=== PATIENT | female | born 1965 | race Caucasian/White ===

== ENCOUNTER 2021-10-11 23:53 | Emergency (ER) | payer OTHER, MEDICAID ==
[~2021-10-11] VITALS: Ht 170.2 cm; Wt 78.5 kg
[2021-10-11 23:59] VITALS: BP 143/94
--- NOTE | 2021-10-12 00:02 | NUR ---
AMBUALTORY TO LOBBY
--- NOTE | 2021-10-12 02:10 | NUR ---
SEEN AND EXAMINED BY TABITHA
--- NOTE | 2021-10-12 02:38 | NUR ---
PATIENT REFUSED X RAY , NOTED BY ERMNeymar
[2021-10-12 02:48] LABS: BASOPHILS # (AUTO) 0.2 K/uL (0.00-0.22); BASOPHILS % (AUTO) 2.9 % (0.0-2.0); EOSINOPHILS # (AUTO) 0.1 K/uL (0-0.4); EOSINOPHILS % (AUTO) 1.2 % (0.0-4.0); HEMATOCRIT 39.9 % (36-48); HEMOGLOBIN 13.3 g/dL (12.0-16.0); LYMPHOCYTES # (AUTO) 0.8 K/uL (2.5-16.5); LYMPHOCYTES % (AUTO) 14.8 % (20.5-51.1); MEAN CORPUSCULAR HEMOGLOBIN 30 pg (27-31); MEAN CORPUSCULAR HGB CONC 33 g/dL (33-37); MEAN CORPUSCULAR VOLUME 89.6 fL (80-94); MONOCYTES # (AUTO) 0.3 K/uL (0.8-1.0); MONOCYTES % (AUTO) 5.5 % (1.7-9.3); NEUTROPHILS # (AUTO) 4.2 K/uL (1.8-7.7); NEUTROPHILS % (AUTO) 75.6 % (42.2-75.2); PLATELET COUNT (AUTO) 197 K/uL (140-450); RED BLOOD CELL COUNT(AUTO) 4.45 MIL/uL (4.20-5.40); RED CELL DISTRIBUTION WIDTH 13.5 % (11.6-13.7); WHITE BLOOD COUNT (AUTO) 5.5 K/uL (4.8-10.8)
[2021-10-12 03:02] LABS: ALBUMIN 3.7 g/dL (3.4-5.0); ANION GAP 12.5 (8-16); CARBON DIOXIDE 29.1 mmol/L (21-32); CREATININE 0.9 mg/dL (0.6-1.3); POTASSIUM 3.6 mmol/L (3.5-5.1); TOTAL BILIRUBIN 0.8 mg/dL (0.0-1.0)
[2021-10-12] MEDS ORDERED: ACETAMINOPHEN EXTRA STRENGTH 500 MG TAB PO ONE (03:20)
--- NOTE | 2021-10-12 03:20 | NUR ---
MEDICATED PER ERMDS ORDER, TOLERATED WELL
--- NOTE | 2021-10-12 03:40 | NUR ---
ALL RESULTS BACK AND NOTED BY ERMD AND FOR D/C
[2021-10-12 03:50] VITALS: BP 120/89
--- NOTE | 2021-10-12 03:50 | NUR ---
Patient discharged with v/s stable. Written and verbal after care instructions given and explained. Patient verbalized understanding. Ambulatory with steady gait. All questions addressed prior to discharge. Advised to follow up with PMD.
== END 2021-10-12 03:50 | disposition home or self-care (01) ==
LOC: MED 23:53
DX: S01.81XA Laceration without foreign body of other part of head, initial encounter (principal); R07.89 Other chest pain; G20 Parkinson's disease; V89.2XXA Person injured in unspecified motor-vehicle accident, traffic, initial encounter; Y93.89 Activity, other specified; Y92.89 Other specified places as the place of occurrence of the external cause; Y99.8 Other external cause status
CPT/HCPCS: 36415; 80053; 84484; 85025; 93005; 99284

== ENCOUNTER 2021-10-12 07:00 | Emergency (ER) | payer OTHER, MEDICAID ==
[~2021-10-12] VITALS: Ht 170.2 cm; Wt 78.0 kg
[2021-10-12 07:05] VITALS: BP 154/85
--- NOTE | 2021-10-12 07:30 | NUR ---
Patient discharged, REFUSED TO SIGN PAPERWORK. Written and verbal after care instructions given and explained. Patient verbalized understanding. Ambulatory with steady gait. All questions addressed prior to discharge. Advised to follow up with PMD.
== END 2021-10-12 07:30 | disposition home or self-care (01) ==
LOC: MED 07:00
DX: R07.9 Chest pain, unspecified (principal); K08.89 Other specified disorders of teeth and supporting structures
CPT/HCPCS: 93005; 99283